=== PATIENT | female | born 1995 | race Two or more races ===

== ENCOUNTER 2020-05-30 18:24 | Emergency (ER) | payer OTHER ==
[~2020-05-30] VITALS: Ht 154.9 cm; Wt 69.4 kg
[2020-05-30 18:46] VITALS: Ht 154.9 cm; Wt 69.4 kg
[2020-05-30] MEDS ORDERED: FLE10 PO (20:19)
[2020-05-30] MEDS ORDERED: IBU600 M2 PO (20:19)
[2020-05-30 20:26] VITALS: BP 114/69
== END 2020-05-30 20:32 | disposition home or self-care (01) ==
LOC: ED 18:24
DX: S39.012A Strain of muscle, fascia and tendon of lower back, initial encounter (principal); S16.1XXA Strain of muscle, fascia and tendon at neck level, initial encounter; E11.9 Type 2 diabetes mellitus without complications; X58.XXXA Exposure to other specified factors, initial encounter; Y93.89 Activity, other specified; Y92.89 Other specified places as the place of occurrence of the external cause; Y99.8 Other external cause status
CPT/HCPCS: J1885